=== PATIENT | female | born 1960 | race Caucasian/White ===

== ENCOUNTER 2016-08-27 19:52 | Emergency (ER) | payer BC ==
[~2016-08-27] VITALS: Ht 152.4 cm; Wt 62.9 kg
[~2016-08-27 19:52] MED LIST: FLEXERIL10 MG PO; IBUPROFEN600 MG PO; INDOCIN25 MG PO; KEFLEX500 MG PO; MOTRIN600 MG PO; MOTRIN800 MG PO; NORCO 5/3251 TABLET PO; NORCO 7.5/321 TABLET PO; PERCOCET 5/31 TABLET PO; PREDNISONE10 M1 PO; PREDNISONE20 MG PO; TESSALON PERLE100 MG PO; ULTRAM50 MG PO
[2016-08-27 20:39] LABS: HEMATOCRIT 42.8 % (36.0-46.0); MCH 29.8 PG (29.0-34.0); MCHC 35.3 G/DL (30.0-36.0); MCV 84.4 FL (83-99); MEAN PLAT.VOLUME 9.8 uM^3 (9.5-12.4); PLATELET COUNT 295 K/uL (156-360); RBC DIS.WIDTH-CV 12.3 % (11.8-14.6); RBC DIS.WIDTH-SD 36.8 % (39-53); RED BLOOD COUNT 5.07 M/uL (3.80-5.20); WHITE BLOOD COUNT 6.6 K/uL (4.1-10.2)
[2016-08-27 20:52] LABS: CHLORIDE 101 mEq/L (99-109)
[2016-08-27 20:53] LABS: SODIUM 140 mEq/L (136-147)
[2016-08-27 20:54] LABS: GLUCOSE 142 mg/dL (70-99)
[2016-08-27 20:56] LABS: ANION GAP 13 MEQ/L (2-14)
[2016-08-27 20:58] LABS: GFR ESTIMATE (CALCULATED) > 59 mL/min/
[2016-08-27] MEDS ORDERED: VENTOLIN HFA18 GM IH (20:58)
[2016-08-27] MEDS ORDERED: DOXYCYCLINE HY100 M3 PO (20:58)
[2016-08-27 20:59] LABS: UREA NITROGEN (BUN) 11 mg/dL (9-23)
[2016-08-27 21:15] VITALS: BP 172/79
== END 2016-08-27 21:16 | disposition home or self-care (01) ==
LOC: EME 19:52
DX: J40 Bronchitis, not specified as acute or chronic (principal); J32.9 Chronic sinusitis, unspecified; F17.200 Nicotine dependence, unspecified, uncomplicated
CPT/HCPCS: 71020; 80048; 85027; 99281; 99283

== ENCOUNTER 2016-12-06 16:26 | Emergency (ER) | payer BC ==
[~2016-12-06] VITALS: Ht 152.4 cm; Wt 59.7 kg
[~2016-12-06 16:26] MED LIST changes: +DOXYCYCLINE HY100 M3 PO; +VENTOLIN HFA18 GM IH
[2016-12-06] MEDS ORDERED: ULTRAM50 MG PO (17:17)
[2016-12-06] MEDS ORDERED: NORCO 5/3251 TABLET PO (18:10)
[2016-12-06 18:17] VITALS: BP 183/109
== END 2016-12-06 18:19 | disposition home or self-care (01) ==
LOC: EME 16:26
DX: S93.401A Sprain of unspecified ligament of right ankle, initial encounter (principal); Z88.2 Allergy status to sulfonamides; Z88.0 Allergy status to penicillin; Z88.6 Allergy status to analgesic agent; F17.200 Nicotine dependence, unspecified, uncomplicated
CPT/HCPCS: 73610; 99281; 99284

== ENCOUNTER 2018-03-03 09:17 | Emergency (ER) | payer SELFPAY ==
[~2018-03-03] VITALS: Ht 154.9 cm; Wt 58.7 kg
[2018-03-03 10:00] LABS: HEMATOCRIT 44.4 % (36.0-46.0); HEMOGLOBIN 15.8 G/DL (11.9-15.5); MCH 30.7 PG (29.0-34.0); MCHC 35.6 G/DL (30.0-36.0); MCV 86.2 FL (83-99); PLATELET COUNT 280 K/uL (156-360); RBC DIS.WIDTH-CV 11.7 % (11.8-14.6); RED BLOOD COUNT 5.15 M/uL (3.80-5.20); WHITE BLOOD COUNT 7.2 K/uL (4.1-10.2)
[2018-03-03 10:09] LABS: CHLORIDE 100 mEq/L (99-109)
[2018-03-03 10:10] LABS: SODIUM 136 mEq/L (136-147)
[2018-03-03 10:11] LABS: GLUCOSE 266 mg/dL (70-99)
[2018-03-03 10:15] LABS: CREATININE 1.1 mg/dL (0.6-1.3); GFR ESTIMATE (CALCULATED) 55 mL/min/
[2018-03-03 10:16] LABS: UREA NITROGEN (BUN) 14 mg/dL (9-23)
[2018-03-03 10:22] LABS: TROP-I INTERPRETATION NEGATIVE; TROPONIN-I < 0.01 ng/mL (0.0-0.30)
[2018-03-03] MEDS ORDERED: FLEXERIL10 MG PO (10:57)
[2018-03-03] MEDS ORDERED: NORCO 5/3251 TABLET PO (10:57)
[2018-03-03 11:17] VITALS: BP 149/93
== END 2018-03-03 11:19 | disposition home or self-care (01) ==
LOC: EME 09:17
DX: S29.011A Strain of muscle and tendon of front wall of thorax, initial encounter (principal); X58.XXXA Exposure to other specified factors, initial encounter; M62.838 Other muscle spasm; F17.200 Nicotine dependence, unspecified, uncomplicated; Z88.2 Allergy status to sulfonamides; Z88.0 Allergy status to penicillin; Z88.8 Allergy status to other drugs, medicaments and biological substances; Z87.39 Personal history of other diseases of the musculoskeletal system and connective tissue
CPT/HCPCS: 71046; 80048; 84484; 85027; 93005; 99281; 99285

== ENCOUNTER → 2018-04-18 | Outpatient (CLI) | payer OTHER | END | disposition home or self-care (01) | LOC: RES 09:31 | DX: M25.78 Osteophyte, vertebrae (principal); M46.97 Unspecified inflammatory spondylopathy, lumbosacral region; R93.7 Abnormal findings on diagnostic imaging of other parts of musculoskeletal system | CPT/HCPCS: 72100 ==